=== PATIENT | male | born 1965 | race Caucasian/White ===

== ENCOUNTER 2019-05-09 23:07 | Emergency (ER) | payer OTHER ==
[~2019-05-09] VITALS: Ht 175.3 cm; Wt 96.6 kg
--- NOTE | 2019-05-09 23:15 | NUR ---
ASSESSMENT MADE. SEEN BY ERP. ANAHI ELAM PAGE.
--- NOTE | 2019-05-10 00:20 | NUR ---
DR. PINEDO ( GI ) AT BEDSIDE TALKING TO PATIENT AND DISCUSSING PROCEDURE AND PLAN OF CARE.
[2019-05-10] MEDS ORDERED: PROPOFOL 10 MG/ML, 20ML ONE ×2 (00:33→01:01)
--- NOTE | 2019-05-10 00:45 | NUR ---
ENDOSCOPY TEAM AT BEDSIDE.
--- NOTE | 2019-05-10 00:50 | NUR ---
TIME OUT INITIATED BY DR. FINCH. ALL AGREE.
--- NOTE | 2019-05-10 01:05 | NUR ---
PROCEDURE ENDED. PATIENT DROWSY. VSS
--- NOTE | 2019-05-10 01:15 | NUR ---
PATIENT AWAKE AND ORIENTED.
--- NOTE | 2019-05-10 01:20 | NUR ---
DR. PINEDO AT BEDSIDE FOR RE-EVALUATION.
--- NOTE | 2019-05-10 01:40 | NUR ---
ERP AT BEDSIDE FOR RE-EVALUATION.
--- NOTE | 2019-05-10 01:58 | NUR ---
PATIENT DISCHARGED WITH PRESCRIPTIONS AND INSTRUCTION. VERBALIZED UNDERSTANDING.
[2019-05-10 02:00] VITALS: BP 138/89
[2019-05-10] MEDS ORDERED: PROPOFOL 10 MG/ML, 20ML IVPush ONE ×2 (02:00)
== END 2019-05-10 02:03 | disposition home or self-care (01) ==
LOC: ED 05-10 00:43
DX: T18.128A Food in esophagus causing other injury, initial encounter (principal); K21.0 Gastro-esophageal reflux disease with esophagitis; Z87.891 Personal history of nicotine dependence; X58.XXXA Exposure to other specified factors, initial encounter; Y93.89 Activity, other specified; Y92.89 Other specified places as the place of occurrence of the external cause; Y99.8 Other external cause status
CPT/HCPCS: 43247; 88305; 99285; J2704